=== PATIENT | male | born 2000 | race African-American/Black ===

== ENCOUNTER 2023-08-23 00:38 | Emergency (ER) | payer MEDICAID ==
[~2023-08-23] VITALS: Ht 167.6 cm; Wt 77.0 kg
[2023-08-23 01:20] VITALS: O2SAT 100
[2023-08-23 01:43] LABS: BASOPHILS % 0.4 % (0.0-2.0); EOSINOPHILS % 2.7 % (0.0-5.0); HEMATOCRIT. 48.9 % (42.0-52.0); HEMOGLOBIN. 15.9 g/dL (14.0-18.0); LYMPHOCYTES % 35.6 % (20.0-50.0); MEAN CORPUSCULAR HEMOGLOBIN 27.5 pg (28.0-32.0); MEAN CORPUSCULAR HGB CONC 32.6 g/dL (31.0-37.0); MEAN CORPUSCULAR VOLUME 84.5 fL (80.0-94.0); MEAN PLATELET VOLUME 7.3 fl (7.4-10.4); MONOCYTES % 9.7 % (2.0-8.0); NEUTROPHILS % 51.6 % (40.0-76.0); PLATELET 287 x1000/uL (130-400); RED BLOOD CELL COUNT 5.79 mill/uL (4.7-6.1); RED CELL DISTRIBUTION WIDTH 14.4 % (11.6-14.6); WHITE BLOOD COUNT 5.1 x1000/uL (4.5-11.0)
[2023-08-23 01:47] LABS: CHLORIDE 105 mEq/L (98-107); POTASSIUM 3.8 mEq/L (3.5-5.1); SODIUM 139 mEq/L (136-145)
[2023-08-23 01:48] LABS: CALCIUM 9.5 mg/dL (8.7-10.4); CARBON DIOXIDE 29 mEq/L (21-32)
[2023-08-23 01:53] LABS: GLUCOSE 83 mg/dL (70-105); UREA NITROGEN BLOOD 8 mg/dL (9-23)
[2023-08-23 02:10] LABS: ETHANOL BLOOD < 10 mg/dL (<10)
[2023-08-23 02:23] LABS: CLARITY URINE CLEAR (CLEAR); COLOR URINE YELLOW (YELLOW); GLUCOSE URINE NEGATIVE (NEGATIVE); KETONES URINE TRACE (NEGATIVE); LEUKOCYTE ESTERASE URINE NEGATIVE (NEGATIVE); NITRITE URINE NEGATIVE (NEGATIVE); OCCULT BLOOD URINE NEGATIVE (NEGATIVE); PROTEIN URINE TRACE (NEGATIVE); SPECIFIC GRAVITY URINE 1.025 (1.005-1.030)
[2023-08-23 02:32] LABS: *AMPHETAMINES SCREEN URINE NEGATIVE (NEGATIVE); *BARBITURATES SCREEN URINE NEGATIVE (NEGATIVE); *BENZODIAZEPINES SCREEN URINE NEGATIVE (NEGATIVE); *COCAINE SCREEN URINE NEGATIVE (NEGATIVE); METHADONE URINE SCREEN NEGATIVE (NEGATIVE); OPIATES URINE SCREEN NEGATIVE (NEGATIVE); PHENCYCLIDINE URINE SCREEN NEGATIVE (NEGATIVE)
[2023-08-23 02:33] LABS: CANNABINOID URINE SCREEN NEGATIVE (NEGATIVE); ECSTASY MDMA SCREEN URINE NEGATIVE (NEGATIVE)
[2023-08-23 05:04] LABS: RBC URINE 0-2 /hpf (0-2); SQUAMOUS EPITHELIAL CELL URINE FEW /lpf (RARE/1+); WBC URINE 0-2 /hpf (0-2)
[2023-08-23 05:05] LABS: BACTERIA URINE NONE SEEN
[2023-08-23 05:06] LABS: MUCUS URINE 1+ /lpf (NONE/TRACE)
[2023-08-23] MEDS ORDERED: SERT25TA74 PO (10:33)
[2023-08-23 11:06] VITALS: BP 124/66; PULSE 76; RESP 20; TEMP 97.9
== END 2023-08-23 11:00 | disposition home or self-care (01) ==
LOC: ER 00:38
DX: R45.851 Suicidal ideations (principal); F17.200 Nicotine dependence, unspecified, uncomplicated; Z20.822 Contact with and (suspected) exposure to COVID-19
CPT/HCPCS: 36415; 80048; 80305; 80307; 80320; 80329; 81003; 85025; 87426; 99285; G0480

== ENCOUNTER 2023-12-04 22:04 | Emergency (ER) | payer MEDICAID ==
[~2023-12-04] VITALS: Ht 167.6 cm; Wt 75.0 kg
[~2023-12-04 22:04] MED LIST: SERT25TA74 PO
[2023-12-04 22:14] VITALS: BP 132/88; PULSE 89; TEMP 98.9; O2SAT 100
[2023-12-04 23:35] VITALS: RESP 19
[2023-12-04] MEDS: KETOROLAC 15MG/ML VIAL IM ONE (23:40)
[2023-12-04] MEDS: DEXAMETHASONE 10 MG/ML VIAL IM ONE (23:40)
[2023-12-05] MEDS ORDERED: PENI500T MT (00:37)
== END 2023-12-05 00:49 | disposition home or self-care (01) ==
LOC: ER 22:04
DX: J02.0 Streptococcal pharyngitis (principal)
CPT/HCPCS: 87430; 96372; 99284; J1100; J1885; Z7610

== ENCOUNTER 2023-12-25 04:09 | Emergency (ER) | payer MEDICAID ==
[~2023-12-25] VITALS: Ht 167.6 cm; Wt 76.0 kg
[~2023-12-25 04:09] MED LIST changes: +PENI500T MT
[2023-12-25 04:15] VITALS: O2SAT 99
[2023-12-25] MEDS: KETOROLAC 15MG/ML VIAL IM ONE (04:40)
[2023-12-25] MEDS ORDERED: NAPR-1176 MT (05:01)
[2023-12-25 05:15] VITALS: BP 121/69; PULSE 83; RESP 16; TEMP 36.66960; O2SAT 100
== END 2023-12-25 05:36 | disposition home or self-care (01) ==
LOC: ER 04:09
DX: K08.9 Disorder of teeth and supporting structures, unspecified (principal)
CPT/HCPCS: 99283; 96372; J1885